=== PATIENT | female | born 1960 | race Caucasian/White ===

== ENCOUNTER → 2016-03-26 | Outpatient (CLI) | payer OTHER ==
[2016-03-26 08:23] LABS: ANION GAP 14.9 MEQ/L (3-15); BUN/CREATININE RATIO 30 (10-20)
[2016-03-26 15:13] LABS: ALBUMIN 4.4 g/dL (3.4-5.0); ALKALINE PHOSPHATASE 62 U/L (38-126); CALCULATED IONIZED CALCIUM 3.9 mg/dL (3.8-4.6); TOTAL PROTEIN 7.9 g/dL (6.4-8.5)
== END ==
LOC: LAB 07:55
PROVIDERS: ATTEND Nurse Practitioner Family
DX: Z13.6 Encounter for screening for cardiovascular disorders (principal)
CPT/HCPCS: 36415; 80053; 80061

== ENCOUNTER → 2016-03-27 | Outpatient (REF) | payer OTHER ==
[2016-03-27 10:58] LABS: BASOPHILS % (AUTO) 1 % (0-2); EOSINOPHILS # (AUTO) 0.2 10^3uL; EOSINOPHILS % (AUTO) 3 % (0-4); LYMPHOCYTES # (AUTO) 1.9 X10^3; MEAN CORPUSCULAR HGB CONC 34.1 g/dL (31.0-37.0); MEAN CORPUSCULAR VOLUME 94 FL (80-100); MEAN PLATELET VOLUME 9.4 FL (6.0-9.5); MONOCYTES # (AUTO) 0.7 X10^3; MONOCYTES % (AUTO) 10 % (3-11); NEUTROPHILS # (AUTO) 4.1 X10^3; NEUTROPHILS % (AUTO) 58 % (51-67); PLATELET COUNT 355 10^3uL (150-450); WHITE BLOOD COUNT 6.93 10^3uL (4.0-11.0)
[2016-03-27 10:59] LABS: MEAN CORPUSCULAR HEMOGLOBIN 31.9 PG (26.0-34.0)
== END ==
LOC: LAB 10:27
PROVIDERS: ATTEND Nurse Practitioner Family
DX: R00.0 Tachycardia, unspecified (principal); R94.6 Abnormal results of thyroid function studies
CPT/HCPCS: 84436; 84443; 84480; 85025

== ENCOUNTER → 2016-07-02 | Outpatient (CLI) | payer OTHER ==
[~2016-07-02] MED LIST: ACET325T38; CALCIUM; HAIR SKIN AND NAILS; HORMONE SL; HYDR-3754 PO; IBP200T; MULT1CAP27 PO; VITAMIN C
[2016-07-02 08:58] LABS: ALBUMIN 4.2 g/dL (3.4-5.0); TOTAL PROTEIN 7.3 g/dL (6.4-8.5)
== END ==
LOC: LAB 07:35
PROVIDERS: ATTEND Nurse Practitioner Family
DX: R94.6 Abnormal results of thyroid function studies (principal); E78.2 Mixed hyperlipidemia
CPT/HCPCS: 36415; 80061; 80076; 84443